=== PATIENT | female | born 2000 | race African-American/Black ===

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

== ENCOUNTER 2022-07-01 22:00 | Inpatient (IN) ==
[2022-07-01] MEDS ORDERED: Al Hydrox/Mg Hydrox/Simet LIQ 30 ML UDC PO PRN (23:16)
[2022-07-02] MEDS: Vitamin THERAPEUTIC TAB PO SCH (07:24)
[2022-07-02 08:08] LABS: Cholesterol 134 mg/dL; LDL Cholesterol 74 mg/dL; Triglycerides 68 mg/dL
[2022-07-03] MEDS: Vitamin THERAPEUTIC TAB PO SCH (07:39)
[2022-07-03 13:09] LABS: HCG Pregnancy < 0.60 mIU/mL
[2022-07-04] MEDS: Vitamin THERAPEUTIC TAB PO SCH (09:04)
[2022-07-05] MEDS: Vitamin THERAPEUTIC TAB PO SCH (07:29)
[2022-07-06 07:39] VITALS: BP 95/52
[2022-07-06] MEDS: Vitamin THERAPEUTIC TAB PO SCH (09:01)
== END 2022-07-06 12:20 | disposition home or self-care (01) | DRG 756 ==
LOC: ED 22:00 → BSU 22:10
PROVIDERS: ADMIT Psychiatry & Neurology Psychiatry; ATTEND Psychiatry & Neurology Psychiatry

== ENCOUNTER 2022-07-16 19:41 | Inpatient (IN) ==
[2022-07-17] MEDS ORDERED: Al Hydrox/Mg Hydrox/Simet LIQ 30 ML UDC PO PRN (01:15)
[2022-07-17] MEDS ORDERED: Albuterol HFA INHALER 8 gm MDI INH PRN (01:16)
[2022-07-17] MEDS: Vitamin THERAPEUTIC TAB PO SCH (08:30)
[2022-07-18] MEDS: Vitamin THERAPEUTIC TAB PO SCH (07:59)
[2022-07-18 09:31] LABS: HDL Cholesterol 50.3 mg/dL
[2022-07-19] MEDS: Vitamin THERAPEUTIC TAB PO SCH (07:13)
[2022-07-20] MEDS: Vitamin THERAPEUTIC TAB PO SCH (07:33)
[2022-07-21] MEDS: Vitamin THERAPEUTIC TAB PO SCH (08:31)
[2022-07-21] MEDS: Lithium Carbonate ER 450mg TAB PO SCH (20:33)
[2022-07-22] MEDS: Vitamin THERAPEUTIC TAB PO SCH (08:11)
[2022-07-22] MEDS: Lithium Carbonate ER 450mg TAB PO SCH ×2 (08:11→20:30)
[2022-07-23] MEDS: Lithium Carbonate ER 450mg TAB PO SCH ×2 (07:36→21:04)
[2022-07-23] MEDS: Vitamin THERAPEUTIC TAB PO SCH (07:37)
[2022-07-24] MEDS: Lithium Carbonate ER 450mg TAB PO SCH ×2 (07:57→21:28)
[2022-07-24] MEDS: Vitamin THERAPEUTIC TAB PO SCH (07:57)
[2022-07-24] MEDS: CETIRIZINE PSEUDOEPHEDRINE PO SCH (08:41)
[2022-07-25] MEDS: Vitamin THERAPEUTIC TAB PO SCH (08:11)
[2022-07-25] MEDS: CETIRIZINE PSEUDOEPHEDRINE PO SCH (08:38)
[2022-07-25] MEDS: Lithium Carbonate ER 450mg TAB PO SCH ×2 (08:38→20:44)
[2022-07-26] MEDS: CETIRIZINE PSEUDOEPHEDRINE PO SCH (09:17)
[2022-07-26] MEDS: Lithium Carbonate ER 450mg TAB PO SCH ×2 (09:17→21:03)
[2022-07-26] MEDS: Vitamin THERAPEUTIC TAB PO SCH (09:17)
[2022-07-27] MEDS: Lithium Carbonate ER 450mg TAB PO SCH ×2 (08:16→21:25)
[2022-07-27] MEDS: CETIRIZINE PSEUDOEPHEDRINE PO SCH (08:17)
[2022-07-27] MEDS: Vitamin THERAPEUTIC TAB PO SCH (08:18)
[2022-07-28] MEDS: Lithium Carbonate ER 450mg TAB PO SCH (07:54)
[2022-07-28] MEDS: Vitamin THERAPEUTIC TAB PO SCH (07:55)
[2022-07-28] MEDS: CETIRIZINE PSEUDOEPHEDRINE PO SCH (07:56)
[2022-07-29] MEDS: Vitamin THERAPEUTIC TAB PO SCH (08:26)
[2022-07-29] MEDS: CETIRIZINE PSEUDOEPHEDRINE PO SCH (08:27)
[2022-07-30] MEDS: Vitamin THERAPEUTIC TAB PO SCH (08:27)
[2022-07-30] MEDS: CETIRIZINE PSEUDOEPHEDRINE PO SCH (08:28)
[2022-07-31] MEDS: Vitamin THERAPEUTIC TAB PO SCH (10:15)
[2022-07-31] MEDS: CETIRIZINE PSEUDOEPHEDRINE PO SCH ×2 (10:17→10:53)
[2022-08-01] MEDS: CETIRIZINE PSEUDOEPHEDRINE PO SCH (08:43)
[2022-08-01] MEDS: Vitamin THERAPEUTIC TAB PO SCH (08:43)
[2022-08-02] MEDS: Vitamin THERAPEUTIC TAB PO SCH (08:55)
[2022-08-02] MEDS: CETIRIZINE PSEUDOEPHEDRINE PO SCH (08:56)
[2022-08-03 07:46] VITALS: BP 92/55
[2022-08-03 07:50] LABS: ABS Eosinophils 0.4 10^3/ul (0-0.6); ABS Lymphocytes 1.9 10^3/ul (1.0-4.8); ABS Monocytes 0.6 10^3/ul (0-0.8); ABS Neutrophils 7.4 10^3/ul (1.5-7.7); Eosinophil % 4.2 %; Hematocrit 33 % (35-47); Hemoglobin 11.2 g/dL (12.0-16.0); Lymphocyte % 18.2 %; Mean Corpuscular HGB Conc 33 g/dL (31-36); Mean Corpuscular Hemoglobin 29 pg (27-31); Mean Corpuscular Volume 88 fL (80-97); Mean Platelet Volume 8.9 fL (7.4-10.4); Platelet Count 287 10^3/uL (150-450); Red Cell Distribution Width 13 % (10-15); White Blood Count 10.4 10^3/uL (3.5-10.8)
[2022-08-03] MEDS: CETIRIZINE PSEUDOEPHEDRINE PO SCH (08:24)
[2022-08-03 08:27] LABS: Albumin/Globulin Ratio 1.7 (1-3); Calcium 9.1 mg/dL (8.6-10.3); Globulin 2.3 g/dL (2-4); Lithium 0.78 mmol/L (0.6-1.2); Potassium 3.9 mmol/L (3.5-5.0); Total Bilirubin 0.2 mg/dL (0.2-1.0); Total Protein 6.3 g/dL (6.4-8.9); eGFR CKD-EPI 121.9 (>60)
[2022-08-03] MEDS: Vitamin THERAPEUTIC TAB PO SCH (08:27)
== END 2022-08-03 12:43 | disposition home or self-care (01) | DRG 753 ==
LOC: ED 19:41 → EDHOLD 07-17 00:05 → BSU 07-17 01:34
PROVIDERS: ADMIT Psychiatry & Neurology Psychiatry; ATTEND Psychiatry & Neurology Psychiatry